=== PATIENT | female | born 1985 | race Caucasian/White ===

== ENCOUNTER 2018-11-25 04:20 | Inpatient (IN) | payer MEDICAID ==
[~2018-11-25] VITALS: Ht 157.5 cm; Wt 62.1 kg
[~2018-11-25 04:20] MED LIST: PRED10TA PO; PRED20TA PO; VALA500T4 PO
[2018-11-25] MEDS ORDERED: LACTATED RINGER'S 1,000 ML IV PRN (04:50)
[2018-11-25 04:59] VITALS: Ht 157.5 cm; Wt 62.1 kg
[2018-11-25] MEDS ORDERED: BUTORPHANOL 2 MG INJ IV PRN (05:00)
[2018-11-25] MEDS ORDERED: METHYLERGONOVINE 0.2 MG INJ IM PRN ×2 (05:00→21:30)
[2018-11-25] MEDS ORDERED: MINERAL OIL LIGHT 10 ML VIAL TOP PRN (05:00)
[2018-11-25] MEDS ORDERED: OXYTOCIN 30 UNITS/LR 500 ML IV PRN ×2 (05:00→21:30)
[2018-11-25] MEDS ORDERED: MISOPROSTOL 200 MCG TAB PR PRN ×2 (05:00→21:30)
[2018-11-25] MEDS ORDERED: LIDOCAINE 1% (MPF) 30 ML INJ INJ PRN (05:00)
[2018-11-25] MEDS ORDERED: OXYTOCIN 30 UNITS/LR 500 ML IV SCH ×3 (05:00)
[2018-11-25] MEDS ORDERED: CARBOPROST 250 MCG INJ IM PRN ×2 (05:00→21:30)
[2018-11-25] MEDS: LACTATED RINGER'S 1,000 ML IV SCH ×4 (05:37→17:58)
--- NOTE | 2018-11-25 06:14 | TRIAGE ---
OB Triage Datetime Report Generated by CPN: 11/25/2018 06:13 Datetime: 11/25/2018 06:00 Stage of : Labor Labor Evaluation Frequency: 2-5 Monitor Mode: External Duration (sec)2399: 60-90 Quality: Mild Pattern: Normal: <= 5 Contractions in 10 Minutes Resting Tone Rice Tracts: Relaxed Heart Rate FHR Baseline Rate: 135 Monitor Mode: External US Variability: Moderate 6-25 bpm Accelerations: 15X15 Decelerations: None Category: Category I Datetime: 11/25/2018 05:20 Assessment Type: Admission Assessment Vaginal Bleeding: None Maternal Assessment Level of Consciousness: Fully Conscious DTR's/Clonus: DTRs 2+; No Clonus Headache: Denies Blurred Vision: No Respiratory Effort: Unlabored; Regular Rhythm; Equal Expansion Breath Sounds, Left: Clear and Equal Breath Sounds, Right: Clear and Equal Nausea/Vomiting: Denies RUQ Epigastric Pain: Denies Lower Extremities Edema: None Upper Extremities Edema: None Facial Edema: None Fall Risk Assessment History of Falling: (0) No Secondary Diagnosis: (0) No Ambulatory Aid: (0) Bedrest/Nurse Assist IV Therapy: (0) No Gait: (0) Normal/Bedrest/Immobile Mental Status: (0) Oriented to Own Ability Fall Score: 0 Fall Risk Score Definition: No Risk: No action required Labor Evaluation Frequency: 6-7 Duration (sec)2399: 40-60 Quality: Mild Pattern: Normal: <= 5 Contractions in 10 Minutes Resting Tone Rice [place]racts: Relaxed Heart Rate FHR Baseline Rate: 130 Variability: Moderate 6-25 bpm Accelerations: 15X15 Decelerations: None Category: Category I Pain Assessment Pain Scale: 2 Pain Presence: Intermittent Pain Type: Contraction Pain Location: Abdomen Pain Goal: 2 Vaginal Exam Dilatation (cms): 2.0 Effacement (%): 70 Station: -2 Membrane Status: Ruptured Membranes Ruptured Date/Time: 11/24/2018 23:30 Membranes Rupture Method: Spontaneous Amniotic Fluid Color: Clear Amniotic Fluid Amount: Moderate Datetime: 11/25/2018 05:05 Time of Arrival: 11/25/2018 05:05 EGA: 38.6 Arrived By: Ambulatory Arrived From: ob triage Datetime: 11/25/2018 05:04 Time of Arrival: 11/25/2018 05:05 EGA: 38.6 Arrived By: Ambulatory Arrived From: Home Chief Complaint: SROM @2330 CLEAR Movement: Present Contractions: Irregular Time Contractions Began: 11/25/2018 00:00 Contractions: [id number] Rupture of Membranes: Ruptured Vaginal Bleeding: None Vaginal Discharge: Present Recent Sexual Intercouse: Denies Abdominal Trauma: Not Applicable Patient Complaints: Other Time Provider Notified: 11/25/2018 04:49 Provider Notified: DR. KRISHNAN Initial Plan: EFM, NITRIZINE, SPECULUM, CALL OB Datetime: 11/25/2018 05:00 Stage of : OB Triage Labor Evaluation Frequency: 4-9 Monitor Mode: External Duration (sec)2399: 70-100 Quality: Mild Pattern: Normal: <= 5 Contractions in 10 Minutes Resting Tone Rice Tracts: Relaxed Heart Rate FHR Baseline Rate: 135 Monitor Mode: External US Variability: Moderate 6-25 bpm Accelerations: 15X15 Decelerations: None Category: Category I Datetime: 11/25/2018 04:40 Vaginal Exam Dilatation (cms): 2.0 Effacement (%): 70 Station: -2 Exam By: Lindsey WEBB Membrane Status: Ruptured Membranes Ruptured Date/Time: 11/24/2018 23:30 Membranes Rupture Method: Spontaneous Amniotic Fluid Color: Clear Amniotic Fluid Amount: Moderate Amniotic Fluid Odor: Normal Vaginal Bleeding: Normal Show Pool: Positive Nitrazine: Positive Cervix, Consistency: Soft Cervix, Position: Posterior Datetime: 11/25/2018 04:34 Stage of : OB Triage Maternal Assessment Level of Consciousness: Fully Conscious DTR's/Clonus: DTRs 2+; No Clonus Headache: Denies Blurred Vision: No Respiratory Effort: Unlabored; Regular Rhythm; Equal Expansion Breath Sounds, Left: Clear and Equal Breath Sounds, Right: Clear and Equal Nausea/Vomiting: Denies RUQ Epigastric Pain: Denies Lower Extremities Edema: None Degree: None Upper Extremities Edema: None Degree: None Facial Edema: None Temperature Route: Oral Fall Risk Assessment History of Falling: (0) No Secondary Diagnosis: (0) No Ambulatory Aid: (0) Bedrest/Nurse Assist IV Therapy: (0) No Gait: (0) Normal/Bedrest/Immobile Mental Status: (0) Oriented to Own Ability Fall Score: 0 Fall Risk Score Definition: No Risk: No action required Pain Assessment Pain Scale: 2 Pain Presence: Intermittent Pain Type: Contraction Pain Location: Abdomen
--- NOTE | 2018-11-25 10:50 | PREAC ---
Date/Time of Note Date/Time of Note DATE: 11/25/18 TIME: 10:50 Anesthesia Eval and Record Evaluation Time Pre-Procedure Interview DATE: 11/25/18 TIME: 10:50 Age 33 Sex female NPO: 8 hrs Preoperative diagnosis Planned procedure labor epidural Past Medical History Past Medical History: None Surgery & Anesthesia Issues No known issue Meds Anticoagulation: No Beta Chelsy within 24 hr: No Reason Beta Chelsy not given: Pt. not on B-Chelsy Active Scripts Prednisone (Prednisone) 20 Mg Tab, 40 MG PO DAILY for 4 Days, TAB Prov:REGIDORAMADOR CARRY OUT CLERK 09/08/15 Prednisone (Prednisone) 20 Mg Tab, 20 MG PO DAILY for 4 Days, TAB Prov:REGIDORAMADOR CARRY OUT CLERK 09/08/15 Prednisone (Prednisone) 10 Mg Tab, 10 MG PO DAILY for 2 Days, TAB Prov:REGIDORAMADOR CARRY OUT CLERK 09/08/15 Prednisone (Prednisone) 20 Mg Tab, 80 MG PO DAILY for 5 Days, TAB Prov:REGIDORAMADOR CARRY OUT CLERK 09/08/15 valACYclovir Hcl* (Valtrex*) 500 Mg Tab, 1000 MG PO TID for 5 Days, TAB Prov:ROBINIDORAMADOR CARRY OUT CLERK 09/08/15 Current Medications Lactated Ringer's 1,000 ml @ 125 mls/hr Q8H IV Last administered on 11/25/18at 10:37; Admin Dose 125 MLS/HR; Start 11/25/18 at 04:50 Butorphanol Tartrate (Stadol) 2 mg Q2H PRN IV .PAIN SCALE 6-10; Start 11/25/18 at 05:00 Lidocaine (Xylocaine 1% (Mpf)) 30 ml ONCE PRN INJ .EPISIOTOMY; Start 11/25/18 at 05:00 Oxytocin/Lactated Ringer's 500 ml @ 500 mls/hr ONCE POST IV ; Start 11/25/18 at 05:00 Oxytocin/Lactated Ringer's 500 ml @ 125 mls/hr POST IV ; Start 11/25/18 at 05:00 Lactated Ringer's 1,000 ml @ 2,000 mls/hr Q30M PRN IV .ANESTHESIA; Start 11/25/18 at 04:50 Oxytocin/Lactated Ringer's 500 ml @ 0 mls/hr ONCE PRN IV .VAGINAL BLEEDING; Start 11/25/18 at 05:00 Methylergonovine Maleate (Methergine) 0.2 mg ONCE PRN IM .VAGINAL BLEEDING; Start 11/25/18 at 05:00 Carboprost Tromethamine (Hemabate) 250 mcg ONCE PRN IM .VAGINAL BLEEDING; Start 11/25/18 at 05:00 Misoprostol (Cytotec) 1,[address] .VAGINAL BLEEDING; Start 11/25/18 at 05:00 Oxytocin/Lactated Ringer's 500 ml @ 0 mls/hr FOR AUGMENTATION IV Last administered on 11/25/18at 06:51; Admin Dose 1 MLS/HR; Start 11/25/18 at 05:00 Mineral Oil (Muri-Lube) 20 ml ONCE PRN TOP FOR DELIVERY; Start 11/25/18 at 05:00; Stop 11/25/18 at 23:45 Meds reviewed: Yes Allergies Coded Allergies: No Known Allergy (Unverified , 09/06/15) Allergies Reviewed: Yes Labs/Studies Labs Reviewed: Reviewed by anesthesiologist Result Diagram: 11/25/18 0515 Laboratory Tests 11/25/18 05:15 Blood Bank Test 11/25/18 05:15 Antibody Screen NEGATIVE Blood Type O POSITIVE Rh Immune Globulin Candidate NO test: Positive Pre-procedure Exam Airway: Adequate mouth opening, Adequate thyromental dist Mallampati: Mallampati II Teeth: Normal Lung: Normal Heart: Normal ASA Physical Status ASA physical status: 1 Emergency: None Planned Anesthetic Neuraxial: Epidural Pre-operative Attestations Prior to commencing anesthesia and surgery, the patient was re-evaluated, there was verification of: *The patient's identity *The results of appropriate recent lab work and preoperative vital signs *The above evaluation not changing prior to induction *Anesthetic plan, risk benefits, alternative and complications discussed with patient/family; questions answered; patient/family understands, accepts and wishes to proceed. BILL COLEY Nov 25, 2018 10:50
[2018-11-25] MEDS ORDERED: FENTAnyl 2MCG/ML-ROPIV 0.2% 100 ML BAG EPI SCH (11:00)
[2018-11-25] MEDS ORDERED: ONDANSETRON 4 MG INJ IV PRN ×2 (11:00→21:30)
[2018-11-25] MEDS ORDERED: KETOROLAC 30 MG INJ IV PRN (11:00)
[2018-11-25] MEDS ORDERED: DIPHENHYDRAMINE 50 MG INJ IV PRN ×2 (11:00→21:30)
[2018-11-25] MEDS ORDERED: NALOXONE (0.4 MG/ML) INJ IV PRN (11:00)
[2018-11-25] MEDS ORDERED: HYDROmorphONE 0.5 MG/0.5 ML SYG IV PRN ×2 (11:00)
--- NOTE | 2018-11-25 13:22 | PAC ---
Date/Time of Note Date/Time of Note DATE: 11/25/18 TIME: 13:22 Post-Anesthesia Notes Post-Anesthesia Note Activity: WNL Respiratory function: WNL Cardiovascular function: WNL Mental status: Baseline Pain reasonably controlled: Yes Hydration appropriate: Yes Nausea/Vomiting absent: Yes BILL COLEY Nov 25, 2018 13:22
--- NOTE | 2018-11-25 20:17 | HP ---
Date/Time of Note Date/Time of Note DATE: 11/25/18 TIME: 20:14 OB - History Hx of Present Free Text/Dictation Late entry note. Patient seen at 08:45 today 33 years old 2 para 1-0-0-1 with single intrauterine at 38 weeks and 6 days with JEFF of 12/03/2018 complaining of leakage of fluid at 2330 last night. She states good movement. She denies nausea, vomiting, shortness of breath, chest pain, headache, visual changes, vaginal bleeding. Chief Complaint: Uterine contractions and leakage of fluid Estimated Due Date: Dec 03, 2018 : 2 Para: 1 Spontaneous : 0 Therapeutic : 0 Care: Good Care Ultrasounds: Normal mid trimester US Obstetrical Complications: None Medical Complications: None (His entire old incision) Past Family/Social History * Past Medical, Surgical, Family and Obstetric Histories reviewed from chart. Blood Type: O+ Rubella: immune RPR/VDRL: Negative GBS Status: Negative HBsAG: Negative (Okay) OB Admission Exam Vital Signs Vital Signs Blood pressure 116/72, pulse rate 68/minutes, temperature 98.6, respiratory rate 16/minutes Physical Exam HEENT: WNL Heart: Rhythm Normal Lungs: Clear Abdomen: WNL Extremities: Normal Cervical Dilatation: 2cm Effacement: 75% Station: -2 Membranes: Ruptured Amniotic Fluid: Clear Heart Rate: 130's Accelerations: Accelerations Present Decelerations: No Decelerations Varibility: Moderate Contractions on Admission: < 5 Minutes Apart Intensity: Moderate Last 72 hours Lab Results CBC & BMP 11/25/18 05:15 OB Assessment/Plan Other plan: 33-year-old -0-0-1 with single intrauterine at 38 weeks and 6 days with spontaneous rupture of membrane in labor -FHR: No sign of metabolic acidosis- Category I -Continuous EFM, toco -CBC, blood type and screen -Analgesia options with R/B/A discussed in detail with patient -Epidural per patient request -Please see the orders -O+/Rubella: Immune -GBS: Negative Admission, procedures, expectations, risks and possible complications have been discussed in detail with the patient. Risk of vaginal delivery including but not limited to bleeding, infection, cervical laceration, placental retention, injury to fetus, blood transfusion, blood transfusion related infection, risk of anesthesia, adhesion, cervical laceration, episiotomy/laceration, possible delivery with risk of bleeding, infection, injury to other organs (bowel, bladder, ureter, vessels, nerves), injury to fetus, blood transfusion, blood transfusion related infection, risk of anesthesia, scar and hernia formation, needs for future , removal of uterus or any other indicated surgery discussed with the patient. She expressed understanding and repeats the risks. All of her questions were answered. She signed the informed consent. PHYSICIAN'S VERIFICATION OF INFORMED CONSENT The patient was counseled regarding the procedure, its indications, risks, potential complications and alternatives and any questions were answered. Consent was obtained. PLANNED PROCEDURE/TREATMENT: Vaginal delivery, episiotomy, repair of laceration possible delivery ALLYSON POSADA Nov 25, 2018 20:17
--- NOTE | 2018-11-25 20:20 | LDN ---
Date/Time of Note Date/Time of Note DATE: 11/25/18 TIME: 20:17 Delivery Summary 83 years old 2 para 1-0-0-1 with single intrauterine at 38 weeks and 6 days delivered a viable female at 18:18 over median episiotomy. There was nuchal cord x1 which clamped and cut. Baby delivered and given to the nurse. Placenta delivered spontaneously and intact. Median episiotomy repaired with 2-0 Vicryl. Patient tolerated procedure well. Weight 7 pounds 7 ounces / 3370 g 8 at 1 minutes and 9 at 5 minutes EBL 400 ml, Pitocin, Methergine and 400 mcg Cytotec p.o. given Weeks of Gestation 38 weeks and 6 days Placenta Delivered: Spontaneously Meconium: none Episiotomy: Yes (Median) Anesthesia type: Epidural Estimated blood loss: 400 Sponge & Needle done & correct: Yes All needle counts correct: Yes Any foreign bodies felt in the: No Infant Delivery Information Sex Infant Sex: female Apgars 1 Minute: 8 5 Minute: 9 10 Minute: 10 Suctioning Nose & mouth suctioned at fran: Yes Umbilical Cord Umbilical cord with: 3 Vessels Cord presentations: nuchal cord Nuchal cord present X: 1 Cord Blood was obtained: Yes Mother & Baby Disposition Disposition Mom & Baby to Maternity; Good: Yes ALLYSON POSADA Nov 25, 2018 20:20
[2018-11-25 20:50] VITALS: BP 128/75; PULSE 71
[2018-11-25] MEDS ORDERED: DEXTROSE 5%-LR 1,000 ML IV SCH (21:03)
[2018-11-25] MEDS ORDERED: LACTATED RINGER'S 1,000 ML IV* SCH (21:03)
[2018-11-25] MEDS ORDERED: LANOLIN HPA 1 PKT TOP PRN (21:30)
[2018-11-25] MEDS ORDERED: SENNA/DOCUSATE NA (8.6MG/50MG) TAB PO PRN (21:30)
[2018-11-25] MEDS ORDERED: OXYCODONE/ASPIRIN (4.88/325) TAB PO PRN (21:30)
[2018-11-25] MEDS ORDERED: ACETAMINOPHEN 325 MG TAB PO PRN (21:30)
[2018-11-25] MEDS ORDERED: BENZOCAINE 20% 56 ML SPRAY TOP PRN (21:30)
[2018-11-25] MEDS ORDERED: MAGNESIUM HYDROXIDE 30ML CUP PO PRN (21:30)
[2018-11-25] MEDS ORDERED: ZOLPIDEM 5 MG TAB PO PRN (21:30)
[2018-11-25] MEDS ORDERED: DIBUCAINE 1% 30 GM OINT TOP PRN (21:30)
[2018-11-25] MEDS ORDERED: WITCH HAZEL/GLYCERIN PAD PR PRN (21:30)
[2018-11-25] MEDS: IBUPROFEN 600 MG TAB PO SCH (23:25)
[2018-11-26 03:10] VITALS: BP 92/50; PULSE 62; RESP 18
[2018-11-26] MEDS: IBUPROFEN 600 MG TAB PO SCH ×4 (05:28→23:35)
[2018-11-26 07:45] VITALS: BP 102/58; PULSE 58; RESP 18
--- NOTE | 2018-11-26 10:07 | PN ---
Date/Time of Note Date/Time of Note DATE: 11/26/18 TIME: 10:05 OB Subjective Subjective Subjective PPD# 1 Patient is doing well. She denies nausea, vomiting, shortness of breath, chest pain, headache. She has been ambulating without difficulty, tolerating regular diet. Pain is well controlled on current medications OB Objective Objective Objective VS - Last 72 Hours, by Label Date Temp Pulse Resp B/P (MAP) Pulse Ox O2 O2 Flow FiO2 Time Delivery Rate 11/26/18 97.9 58 18 102/58 Room Air 07:45 (73) 11/26/18 98.1 62 18 92/50 (64) Room Air 03:10 11/25/18 99.8 71 128/75 Room Air 20:50 (92) General: AAO X 3, comfortable, NAD, appropriate mood and affect. ABD: +BS. Soft, non-tender. Uterus 2 cm below umbilicus Flank: No CVA tenderness (B/L) LE: Mild edema. No clubbing, cyanosis, thigh or calf tenderness (B/L). Homans 'sign is negative OB Assessment/Plan Other plan: 33-year-old 2 para 2001 s/p normal vaginal delivery at 38 weeks and 6 days. PPD#1 - AF, VSS - Contraception methods with R/B/A/FR discussed - Continue care - Discharge home tomorrow - Rx and instruction given - Follow up in 2 and 6 weeks at clinic ALLYSON POSADA Nov 26, 2018 10:07
[2018-11-26 15:57] VITALS: BP 107/55; PULSE 70; RESP 18
[2018-11-26 20:00] VITALS: BP 114/61; PULSE 71; RESP 19
--- NOTE | 2018-11-26 20:54 | DELSUM ---
Delivery Summary A-C Datetime Report Generated by CPN: 11/26/2018 20:54 DELIVERY PERSONNEL Coding Machine Operator: FLACO, GOMEZ MATERNAL INFORMATION Delivery Anesthesia: Epidural Medications in Delivery: LR W/ 30 UNITS PITOCIN Delivery QBL (ml): 400 Placenta Cultured: No Maternal Complications: None LABOR SUMMARY EDC: 12/03/2018 00:00 No. Babies in Womb: 1 Attempted: No Labor Anesthesia: Epidural LABOR INFORMATION Reason for Induction: Not Applicable Onset of Labor: 11/24/2018 23:30 Complete Dilatation: 11/25/2018 17:39 Oxytocin: Augmentation Group B Beta Strep: Negative Antibiotics # of Doses: 0 Steroids Given: None Reason Steroids Not Administered: Not Applicable MEMBRANES Membranes Rupture Method: Spontaneous Rupture of Membranes: 11/24/2018 23:30 Length of Rupture (hr): 18.80 Amniotic Fluid Color: Clear Amniotic Fluid Amount: Moderate Amniotic Fluid Odor: Normal STAGES OF LABOR Stage 1 hr: 18 Stage 1 min: 9 Stage 2 hr: 0 Stage 2 min: 39 Stage 3 hr: 0 Stage 3 min: 4 Total Time in Labor hr: 18 Total Time in Labor min: 52 VAGINAL DELIVERY Episiotomy: Median Laceration Extension: N/A Laceration Type: None Laceration Repair: Yes Initial Vag Sponge Count: 10+10 Final Vag Sponge Count: 20 Initial Vag Sharps Count: 1+2 (Annotations: Data stored by N on behalf of user) Final Vag Sharps Count: 2 Sponge Count Correct: Yes; Vaginal Sweep Performed Sharps Count Correct: Yes BABY A INFORMATION Delivery Date/Time: 11/25/2018 18:18 Method of Delivery: Vaginal Born in Route : No : N/A Forceps: N/A Vacuum Extraction: N/A Shoulder Dystocia : N/A SHOULDER DYSTOCIA BABY A Delivery Date/Time: 11/25/2018 18:18 PRESENTATION/POSITION BABY A Presentation: Cephalic Cephalic Presentation: Vertex Breech Presentation: N/A PLACENTA INFORMATION BABY A Placenta Delivery Time : 11/25/2018 18:22 Placenta Method of Delivery: Spontaneous Placenta Status: Delivered SCORES BABY A Heart Rate 1 min: >100 bpm Resp Effort 1 min: Good Cry Reflex Irritability 1 min: Cough/Sneeze/Pulls Away Muscle Tone 1 min: Active Motion Color 1 min: Blue/Pale Resuscitation Effort 1 min: Tactile Stimulation SCORE 1 MIN: 8 Heart Rate 5 min: >100 bpm Resp Effort 5 min: Good Cry Reflex Irritability 5 min: Cough/Sneeze/Pulls Away Muscle Tone 5 min: Active Motion Color 5 min: Body [place], Extremit Blue Resuscitation Effort 5 min: Tactile Stimulation SCORE 5 MIN: 9 INFANT INFORMATION BABY A Gestational Age at Delivery: 38.6 Gestational Status: Early Term- 37- 38.6 Weeks Outcome : Liveborn Infant Condition : Stable Infant Sex: Female IDENTIFICATION/MEDS BABY A ID Band Number: [id number] ID Band Location: Right Leg; Left Arm Sensor Applied: Yes Sensor Number: [id number] Sensor Location : Cord Clamp Vitamin K Given : Not Given Erythromycin Given: Not Given WEIGHT/LENGTH BABY A Infant Birthweight (gm): 3370 Infant Weight (lb): 7 Weight (oz): 7 Length (in): 20.00 Infant Length (cm): 50.80 CORD INFORMATION BABY A No. Cord Vessels: 3 Nuchal Cord : Around Neck x1, Tight Cord Blood Taken: Yes Infant Suction: Mouth; Nose ASSESSMENT BABY A Complications: Extended Tachycardi Physical Findings at Delivery: Within Normal Limits Infant Respirations: Appears Normal Washer Hand/ALS Called : No Care By: RN Transferred To: Remains with Mother
--- NOTE | 2018-11-26 22:36 | PN ---
Date/Time of Note Date/Time of Note DATE: 11/26/18 TIME: 22:25 OB Subjective Subjective Subjective PPD# 1 Patient is doing well. She denies nausea, vomiting, shortness of breath, chest pain, headache. She has been ambulating without difficulty, tolerating regular diet. Pain is well controlled on current medications OB Objective Objective Objective VS - Last 72 Hours, by Label Date Temp Pulse Resp B/P (MAP) Pulse Ox O2 O2 Flow FiO2 Time Delivery Rate 11/26/18 97.9 70 18 107/55 Room Air 15:57 (72) 11/26/18 97.9 58 18 102/58 Room Air 07:45 (73) 11/26/18 98.1 62 18 92/50 (64) Room Air 03:10 11/25/18 99.8 71 128/75 Room Air 20:50 (92) General: AAO X 3, comfortable, NAD, appropriate mood and affect. ABD: +BS. Soft, non-tender. Uterus 2 cm below umbilicus Flank: No CVA tenderness (B/L) LE: Mild edema. No clubbing, cyanosis, thigh or calf tenderness (B/L). Homans 'sign is negative OB Assessment/Plan Other plan: 33-year-old 2 para 2-0-0-2 s/p normal vaginal delivery at 38 weeks and 6 days. PPD#1 - AF, VSS - Baby is doing well, at bed side. She is bonding well - Contraception methods with R/B/A/FR discussed - Continue care - Discharge home tomorrow - Rx and instruction given - Follow up in 2 and 6 weeks at clinic ALLYSON POSADA Nov 26, 2018 22:36
--- NOTE | 2018-11-26 22:41 | DS ---
Date/Time of Note Date/Time of Note DATE: 11/26/18 TIME: 22:36 Obstetrical Discharge Record Final Diagnosis Final Diagnosis: Term delivered Other Final Diagnosis 33-year-old 2 para 2-0-0-2 s/p normal vaginal delivery at 38 weeks and 6 days. PPD#1. Course was unremarkable. She is ambulating and tolerating regular diet. She is voiding without difficulty. Pain is controlled on current medication. - AF, VSS - Baby is doing well, at bed side. She is bonding well - Contraception methods with R/B/A/FR discussed - Continue care - Discharge home tomorrow - Rx and instruction given - Follow up in 2 and 6 weeks at clinic Condition on Discharge Physical Assessment Last Vitals: Vital Signs Date Temp Pulse Resp B/P (MAP) Pulse Ox O2 O2 Flow FiO2 Time Delivery Rate 11/26/18 97.9 70 18 107/55 Room Air 15:57 (72) Voiding: Yes Bowel Movement: Yes Breast: Soft, non-tender Fundus: Firm Calf Tenderness: No Patient Condition: Stable ALLYSON POSADA Nov 26, 2018 22:41
[2018-11-27 04:00] VITALS: BP 114/61; PULSE 71; RESP 19
[2018-11-27] MEDS: IBUPROFEN 600 MG TAB PO SCH ×3 (05:34→17:12)
[2018-11-27 08:30] VITALS: BP 103/65; PULSE 62; RESP 14
[2018-11-27] MEDS ORDERED: DIPHTH/TET/ACEL PERTUSS (ADULT) 0.5 ML VIAL IM* ONE (09:00)
[2018-11-27] MEDS ORDERED: MEASLES,MUMPS,RUBELLA VACCINE INJ SC* ONE (09:00)
[2018-11-27 16:14] VITALS: BP 125/83; PULSE 64; RESP 17
== END 2018-11-27 19:30 | disposition home or self-care (01) | DRG 807 ==
LOC: OBT 04:20 → L-D 04:30 → OBT 04:49 → L-D 04:49 → MS1 20:49
PROVIDERS: ADMIT Obstetrics & Gynecology; ATTEND Obstetrics & Gynecology
PROC: 10E0XZZ Delivery of Products of Conception, External Approach (ICD-10-PCS; principal; 2018-11-25)
PROC: 0W8NXZZ Division of Female Perineum, External Approach (ICD-10-PCS; 2018-11-25)
DX: O69.81X0 Labor and delivery complicated by cord around neck, without compression, not applicable or unspecified (principal); Z37.0 Single live birth; Z3A.38 38 weeks gestation of pregnancy
CPT/HCPCS: 62322; 76815; 85025; 85610; 85730; 86592; 86850; 86900; 86901; 87340; 90715; G0463; J2210; J2590; J3010; J7120; J7121